=== PATIENT | female | born 1985 | race Caucasian/White ===

== ENCOUNTER → 2025-04-07 | Outpatient (CLI) | payer BC, SELFPAY ==
--- NOTE | 2025-04-07 14:26 | XR_ITS ---
Examination: Fingers, right hand fifth digit 2 views Technique: AP, lateral views right hand fifth digit 2 views. Exam date and time: April 07, 2025 1459 hours INDICATIONS: Crush injury to the hand 3 weeks ago, fifth digit pain FINDINGS: No acute fracture No dislocation IMPRESSION: No acute fracture
--- NOTE | 2025-04-07 14:26 | XR_ITS ---
Examination: Hand, right 3 views Technique: Hand AP, oblique, lateral 3 views Date and time of exam: April 07, 2025 1439 hours INDICATIONS: Crush injury to the hand 3 weeks ago FINDINGS: Mild osteopenia. No fracture or dislocation IMPRESSION: No fracture or dislocation
== END | disposition home or self-care (01) ==
PROVIDERS: PCP Registered Nurse; Referring Provider Physician Assistant; Visit Provider Physician Assistant
DX: S67.196D Crushing injury of right little finger, subsequent encounter (principal); X58.XXXD Exposure to other specified factors, subsequent encounter
CPT/HCPCS: 73130; 73140

== ENCOUNTER → 2025-07-22 | Outpatient (CLI) | payer BC, SELFPAY ==
[2025-07-22 14:17] LABS: Collection Type, Urine Catheter
[2025-07-22 17:29] LABS: Bilirubin,Urine 1+ (Negative); Blood,Urine Negative (Negative); Color,Urine Dark-Brown (Lt Yel-Yel); Glucose, Urine Negative (Negative); Ketones,Urine Negative (Negative); Leukocyte Esterase,Urine Negative (Negative); Nitrite,Urine Positive (Negative); PH,Urine 6.0 (5.0-7.0); Protein,Urine Negative (Neg - Trace); RBC,Urine 1 /hpf (0-3); Specific Gravity,Urine 1.023 (1.001-1.035); Squamous Epithelial Cell,Urine 2 /hpf (0-5); Urobilinogen,Urine 6.0 mg/dL (0.0-1.0); WBC,Urine 17 /hpf (0-5)
[2025-07-22 17:40] LABS: Clarity,Urine Cloudy (Clear/Hazy)
== END | disposition home or self-care (01) ==
LOC: SLDO 14:03
PROVIDERS: PCP Physician Assistant; Referring Provider Physician Assistant; Visit Provider Physician Assistant
DX: N39.0 Urinary tract infection, site not specified (principal)
CPT/HCPCS: 81001; 87077; 87086; 87186

== ENCOUNTER 2025-10-13 13:48 | Outpatient (AMB) | payer BC, SELFPAY ==
--- NOTE | 2025-10-13 14:04 | PD.ORTHCLVIS ---
Vital signs 10/13/25 14:05 Height 1.57 m Height Method Stated Weight 51.936 kg Weight Measurement Method Standing Scale BMI 20.9 BP 127/90 H Blood Pressure Source Automatic Cuff Blood Pressure Location Left Upper Arm Position Sitting Respiration 19 Pulse 92 Pulse Source Monitor Temp 98.1 F Temp Source Temporal Artery Scan Pulse Oximetry (%) 99 Oxygen Delivery Method Room Air Med/Allergies Allergies & Medications Allergies adhesive tape Allergy (Unknown, Verified 10/13/25 14:05) shellfish derived Allergy (Unknown, Verified 10/13/25 14:05) Medication Reconciliation No Known Home Medications 04/01/24 [History Confirmed 10/13/25] Exam Exam Patient is in no acute distress and is cooperative with the examination today. Breathing is nonlabored. Patient has a normal mood and affect. The patient has a gait that is nonantalgic Bilateral extremities were evaluated and demonstrates sensation intact to light touch. Palpable pedal pulses are present. No significant edema is present. Bilateral hips were examined. The patient has no pain with log roll of the hips. Internal rotation to 30 degrees and external rotation to 30 degrees is painless. Negative FADIR. Left knee was examined today. The left knee is in reasonable alignment. Range of motion from 0-120 degrees. Knee is stable to varus and valgus as well as AP translation with <5mm. Patient has a negative McMurrays. There is no pain with patellofemoral compression and no crepitus noted. The knee is nontender to palpation. The right knee was also examined. T range of motion from 0 to 130 degrees. She is tender to palpation on the joint line laterally. She has a positive Arnold's. She has a positive Vic's and anterior drawer Assessment and Plan Problem List (1) ACL tear: Status: Acute Plan: Patient is a 40-year-old female with an likely ACL tear that occurred 2 months ago. She reports swelling and instability since the injury 2 months ago. On exam she examines like she has a ACL tear with significant AP instability and a positive anterior drawer and Vic's. I will order an MRI as I do think this is a new injury. We will see her back after the MRI is done. We also offered her a brace and she reports that she is unlikely to wear it as it will not mact her outfit Office Procedures GNS Level of Care Nursing/Assessment Patient Status: Initial/New Patient Nursing Assessment/Reassesment: Medication Reconciliation, Update PMH in EMR and Vital Signs Coordination of Care: Complex Care and Chronic Disease 1-5, Education Complex Pt/Fam, Consent,records obtained, informed consent, 1 Ins Authorization, Lab and Imaging orders, Results/Orders obtained and Staff clarify orders New Patient Charge New Patient Point Assignment: 1124 New Patient Point Charge: OXYACETYLENE WELDER Level 4 ([id number]) MA Intake Visit Data Collection New Patient or Established: New Patient (never been to [facility]) Reason for Visit:: RIGHT KNEE PAIN Seen by Clinical Staff ONLY (RN/MA): No PCP or OBGYN visit in last 3 months: Yes Hx Now: No Do You Feel Safe at Home: Yes Authorities Contacted: N/A Questionairres Past Medical History Past Medical History Have you ever been diagnosed with any of the following: Neurological Problems Seizures: No Migraine: Yes Cardiology Problems Congestive Heart Failure: No Respiratory Problems Chronic Obstructive Pulmonary Disease (COPD): No Bronchitis: Yes Stomache/Intestinal Problems Gastrointestinal Bleed: Yes Perea's Esophagus: Yes Ulcer: Yes Hiatal Hernia: Yes Hemorrhoids: Yes Gastroesophageal Reflux Disease: Yes Genital/Urinary Problems Renal Disease: No Kidney Stones: Yes Reproductive Problems Endometriosis: No Previous Pregnancies: No Endocrine Problems Diabetes Mellitus Type 1: No Diabetes Mellitus Type 2: No Blood Problems Anemia: Yes (in past) Other Problems Blood Transfusions: No Anesthesia Reactions: Yes (TACHYCARDIA) Cancer: Yes Cervical Cancer: Yes Subjective Visit Visit for: new patient and knee (RIGHT) Immunization / Flu Flu Vaccine in the Last 12 Months: No Flu Vaccine Exclusion Criteria: Refused by Patient History of Present Illness Chief complaint: RIGHT KNEE PAIN Date of injury / onset of symptoms: 2 YEARS Patient is a 40-year-old female who I last saw a year and a half ago for an ACL sprain. She reports that she was doing well until 2 months ago when she was running to catch a plane in [place]. She reports that she noticed the pain when she got on the plane and sit down. She had pain when she was going up escalator as well. She had significant swelling in her knee for 2 weeks afterwards. She feels like she does not entirely trust her knee and there is a lot of pain posteriorly. She has been unable to do any movements that require change direction or twisting. She has been unable to go back to [employer] staff and spin class. She also thinks that there was bruising on the back of the leg afterwards Personal History Occupation: [employer] Pain Pain level (0-10): 8 Pain duration: CONSTANT Pain location: posterior Pain quality: aching Pain timing: increases with activity and stairs Associated signs & symptoms: weakness Ambulatory data Ambulatory device: none Treatments Number of previous injections: 0 Improvement with previous injections: No Number of Physical Therapy sessions: 0 Improvement with PT: No Improvement with NSAIDS: no Review of Systems Review of Systems: All systems negative unless otherwise noted in HPI.
[2025-10-13 14:05] VITALS: BP 127/90; PULSE 92; RESP 19; TEMP 36.7; O2SAT 99; BMI 20.9
== END 2025-10-13 14:19 | disposition home or self-care (01) ==
LOC: HODSRG 13:48
PROVIDERS: PCP Physician Assistant; Referring Provider Physician Assistant; Supervising Provider Orthopaedic Surgery Adult Reconstructive Orthopaedic Surgery; Visit Provider Orthopaedic Surgery Adult Reconstructive Orthopaedic Surgery
DX: S83.511A Sprain of anterior cruciate ligament of right knee, initial encounter (principal); X58.XXXA Exposure to other specified factors, initial encounter
CPT/HCPCS: 99204; G0463